=== PATIENT | male | born 1960 | race Caucasian/White ===

== ENCOUNTER 2017-12-21 00:23 | Inpatient (IN) | payer OTHER ==
[~2017-12-21] VITALS: Ht 175.3 cm; Wt 73.6 kg
[2017-12-21 03:04] VITALS: BP 154/96
[2017-12-21 05:47] VITALS: BP 160/75
[2017-12-21 06:30] LABS: BASOPHILS 0.2 % (0-2); EOSINOPHILS 0 % (0-7); HEMATOCRIT 42.9 % (42.0-54.0); HEMOGLOBIN 15.2 g/dL (13.5-17.5); IMMATURE GRANULOCYTES 0.2 % (0-5); MCH 37.4 pg (26.0-34.0); MCHC 35.4 g/dL (31.0-37.0); MCV 105.7 fL (80.0-100.0); MEAN PLATELET VOLUME 11.2 fL (7.4-10.4); MONOCYTES 5.7 % (2-11); NEUTROPHILS 77.9 % (40-80); PLATELET COUNT 134 10x3/uL (130-400); RBC 4.06 10x6/uL (4.20-6.10); WBC 11.9 10x3/uL (4.8-10.8)
[2017-12-21 07:00] LABS: CALC OSMOLALITY 285 mosm/kg (275-300); CALCIUM 8.9 mg/dL (8.5-10.1); CARBON DIOXIDE 25.2 mmol/L (21.0-32.0); CHLORIDE - SERUM 103 mmol/L (98-107); CREATININE - SERUM 0.9 mg/dL (0.6-1.3); GLUCOSE 112 mg/dL (74-106); POTASSIUM - SERUM 3.8 mmol/L (3.5-5.1); SODIUM 143 mmol/L (136-145); UREA NITROGEN 13 mg/dL (7-18); eGFR NON AFRICAN AMERICAN > 90 mL/min (90-120)
[2017-12-21 07:04] LABS: AMYLASE - SERUM 748 U/L (25-115); LIPASE 4468 U/L (73-393)
[2017-12-21 09:33] LABS: BILIRUBIN - DIRECT 0.65 mg/dL (0.00-0.30); BILIRUBIN - INDIRECT 0.83 mg/dL (0.00-1.00); BILIRUBIN - TOTAL 1.48 mg/dL (0.2-1.3); PROTEIN - SERUM 8.5 g/dL (6.4-8.2)
[2017-12-21 10:06] LABS: INR 1.19 (0.85-1.17); PROTIME 14.6 SECONDS (11.6-15.0)
[2017-12-21 16:20] VITALS: BP 168/97; Ht 175.3 cm; Wt 73.6 kg
[2017-12-21 16:32] VITALS: BP 168/97
[2017-12-21 20:51] VITALS: BP 140/82
[2017-12-22 04:26] VITALS: BP 154/84
[2017-12-22 06:30] LABS: BASOPHILS 0.2 % (0-2); EOSINOPHILS 0.1 % (0-7); HEMATOCRIT 36.4 % (42.0-54.0); HEMOGLOBIN 12.7 g/dL (13.5-17.5); IMMATURE GRANULOCYTES 0.2 % (0-5); MCH 36.6 pg (26.0-34.0); MCHC 34.9 g/dL (31.0-37.0); MCV 104.9 fL (80.0-100.0); MEAN PLATELET VOLUME 11.6 fL (7.4-10.4); MONOCYTES 6.3 % (2-11); NEUTROPHILS 74.2 % (40-80); RBC 3.47 10x6/uL (4.20-6.10); RDW 14.7 % (11.5-14.5); WBC 11.2 10x3/uL (4.8-10.8)
[2017-12-22 06:38] LABS: PLATELET COUNT 101 10x3/uL (130-400)
[2017-12-22 06:40] LABS: ALBUMIN 3.1 g/dL (3.4-5.0); ALKALINE PHOSPHATASE 157 U/L (46-116); ALT (SGPT) 36 U/L (10-68); AMYLASE - SERUM 298 U/L (25-115); BILIRUBIN - TOTAL 1.57 mg/dL (0.2-1.3); CALC OSMOLALITY 269 mosm/kg (275-300); CHLORIDE - SERUM 100 mmol/L (98-107); CREATININE - SERUM 0.6 mg/dL (0.6-1.3); GLUCOSE 79 mg/dL (74-106); LIPASE 1015 U/L (73-393); POTASSIUM - SERUM 3.2 mmol/L (3.5-5.1); PROTEIN - SERUM 6.9 g/dL (6.4-8.2); SODIUM 136 mmol/L (136-145); UREA NITROGEN 10 mg/dL (7-18); eGFR NON AFRICAN AMERICAN > 90 mL/min (90-120)
[2017-12-22 08:39] VITALS: BP 151/86
[2017-12-22 11:21] LABS: APPEARANCE HAZY (CLEAR); BILIRUBIN NEGATIVE (NEGATIVE); COLOR DK YELLOW (YELLOW); GLUCOSE NEGATIVE (NEGATIVE); KETONE SMALL mg/dL (NEGATIVE); NITRITE NEGATIVE (NEGATIVE); PROTEIN NEGATIVE (NEGATIVE)
[2017-12-22 11:23] LABS: BACTERIA FEW /hpf (NONE SEEN); EPITHELIAL CELLS RARE /hpf (0-5); MUCUS <1+ /lpf (NONE SEEN); RED CELLS - URINE RARE /hpf (0-5); WHITE CELLS - URINE RARE /hpf (0-5)
[2017-12-22 12:24] VITALS: BP 132/87
[2017-12-22 15:42] VITALS: BP 158/95
[2017-12-22 20:26] VITALS: BP 160/107
[2017-12-23] VITALS (7 sets, daily range): BP systolic 145–156; BP diastolic 81–101
[2017-12-23 05:32] LABS: BASOPHILS 0.1 % (0-2); EOSINOPHILS 0.3 % (0-7); HEMATOCRIT 36.6 % (42.0-54.0); IMMATURE GRANULOCYTES 0.5 % (0-5); LYMPHOCYTES 18.4 % (15-50); MCH 37.1 pg (26.0-34.0); MCHC 35.5 g/dL (31.0-37.0); MCV 104.6 fL (80.0-100.0); MEAN PLATELET VOLUME 10.9 fL (7.4-10.4); MONOCYTES 7.8 % (2-11); NEUTROPHILS 72.9 % (40-80); PLATELET COUNT 110 10x3/uL (130-400); RDW 14.5 % (11.5-14.5); WBC 11.5 10x3/uL (4.8-10.8)
[2017-12-23 06:13] LABS: ALBUMIN 3.2 g/dL (3.4-5.0); ALKALINE PHOSPHATASE 223 U/L (46-116); BILIRUBIN - TOTAL 1.81 mg/dL (0.2-1.3); CALC OSMOLALITY 261 mosm/kg (275-300); CALCIUM 8.3 mg/dL (8.5-10.1); CARBON DIOXIDE 24.3 mmol/L (21.0-32.0); CHLORIDE - SERUM 96 mmol/L (98-107); CREATININE - SERUM 0.7 mg/dL (0.6-1.3); GLUCOSE 73 mg/dL (74-106); LIPASE 290 U/L (73-393); POTASSIUM - SERUM 3.3 mmol/L (3.5-5.1); PROTEIN - SERUM 7.2 g/dL (6.4-8.2); SODIUM 132 mmol/L (136-145); UREA NITROGEN 8 mg/dL (7-18); eGFR NON AFRICAN AMERICAN > 90 mL/min (90-120)
[2017-12-23 06:14] LABS: ALT (SGPT) 51 U/L (10-68); AMYLASE - SERUM 90 U/L (25-115)
[2017-12-24] MEDS ORDERED: ULTRAM50 MG PO (02:46)
[2017-12-24] MEDS ORDERED: LOPRESSOR25 MG PO (02:47)
[2017-12-24] MEDS ORDERED: PRINIVIL20 MG PO (02:48)
[2017-12-24] MEDS ORDERED: MOBIC7.5 MG PO (02:49)
[2017-12-24] MEDS ORDERED: OMEPRAZOLE20 M1 PO (02:50)
[2017-12-24] MEDS ORDERED: LEXAPRO10 MG PO (02:51)
[2017-12-24 03:43] VITALS: BP 148/90
[2017-12-24 05:19] LABS: BASOPHILS 0.2 % (0-2); EOSINOPHILS 1.3 % (0-7); HEMATOCRIT 36.2 % (42.0-54.0); HEMOGLOBIN 12.6 g/dL (13.5-17.5); IMMATURE GRANULOCYTES 0.5 % (0-5); LYMPHOCYTES 23.4 % (15-50); MCH 36.3 pg (26.0-34.0); MCHC 34.8 g/dL (31.0-37.0); MCV 104.3 fL (80.0-100.0); MEAN PLATELET VOLUME 10.9 fL (7.4-10.4); MONOCYTES 9.8 % (2-11); NEUTROPHILS 64.8 % (40-80); PLATELET COUNT 129 10x3/uL (130-400); RBC 3.47 10x6/uL (4.20-6.10); RDW 14.5 % (11.5-14.5); WBC 8.7 10x3/uL (4.8-10.8)
[2017-12-24 06:07] LABS: ALKALINE PHOSPHATASE 283 U/L (46-116); AMYLASE - SERUM 89 U/L (25-115); BILIRUBIN - TOTAL 1.35 mg/dL (0.2-1.3); CALC OSMOLALITY 265 mosm/kg (275-300); CALCIUM 8.7 mg/dL (8.5-10.1); CARBON DIOXIDE 26.2 mmol/L (21.0-32.0); CHLORIDE - SERUM 100 mmol/L (98-107); CREATININE - SERUM 0.8 mg/dL (0.6-1.3); GLUCOSE 106 mg/dL (74-106); LIPASE 514 U/L (73-393); POTASSIUM - SERUM 3.4 mmol/L (3.5-5.1); PROTEIN - SERUM 6.9 g/dL (6.4-8.2); SODIUM 134 mmol/L (136-145); UREA NITROGEN 6 mg/dL (7-18); eGFR NON AFRICAN AMERICAN > 90 mL/min (90-120)
[2017-12-24 06:09] LABS: ALT (SGPT) 97 U/L (10-68)
[2017-12-24 08:13] VITALS: BP 136/88
[2017-12-24 12:33] VITALS: BP 152/95
[2017-12-24 14:12] LABS: HEPATITIS C ANTIBODY 6.2 (0.0-0.9)
[2017-12-24 16:10] VITALS: BP 152/99
[2017-12-24 19:36] VITALS: BP 158/98
[2017-12-24 23:26] VITALS: BP 178/110
[2017-12-25 04:00] VITALS: BP 149/70
[2017-12-25 05:52] LABS: BASOPHILS 0.2 % (0-2); EOSINOPHILS 1.4 % (0-7); HEMATOCRIT 36.5 % (42.0-54.0); HEMOGLOBIN 12.8 g/dL (13.5-17.5); IMMATURE GRANULOCYTES 0.7 % (0-5); LYMPHOCYTES 23.2 % (15-50); MCH 36.7 pg (26.0-34.0); MCHC 35.1 g/dL (31.0-37.0); MCV 104.6 fL (80.0-100.0); MEAN PLATELET VOLUME 10.8 fL (7.4-10.4); MONOCYTES 12.7 % (2-11); NEUTROPHILS 61.8 % (40-80); RBC 3.49 10x6/uL (4.20-6.10); RDW 14.5 % (11.5-14.5); WBC 8.1 10x3/uL (4.8-10.8)
[2017-12-25 05:54] LABS: PLATELET COUNT 168 10x3/uL (130-400)
[2017-12-25 06:10] LABS: ALKALINE PHOSPHATASE 368 U/L (46-116); BILIRUBIN - TOTAL 0.96 mg/dL (0.2-1.3); CALC OSMOLALITY 274 mosm/kg (275-300); CALCIUM 8.8 mg/dL (8.5-10.1); CARBON DIOXIDE 27.2 mmol/L (21.0-32.0); CHLORIDE - SERUM 101 mmol/L (98-107); CREATININE - SERUM 0.7 mg/dL (0.6-1.3); GLUCOSE 126 mg/dL (74-106); LIPASE 716 U/L (73-393); POTASSIUM - SERUM 3.3 mmol/L (3.5-5.1); PROTEIN - SERUM 7.2 g/dL (6.4-8.2); SODIUM 138 mmol/L (136-145); UREA NITROGEN 5 mg/dL (7-18); eGFR NON AFRICAN AMERICAN > 90 mL/min (90-120)
[2017-12-25 06:11] LABS: ALT (SGPT) 202 U/L (10-68); AMYLASE - SERUM 121 U/L (25-115)
[2017-12-25 06:12] LABS: INR 1.06 (0.85-1.17); PROTIME 13.4 SECONDS (11.6-15.0)
[2017-12-25 08:05] VITALS: BP 143/95
[2017-12-25 12:09] VITALS: BP 141/90
[2017-12-25 16:02] VITALS: BP 141/91
[2017-12-25 19:47] VITALS: BP 158/100
[2017-12-25 23:37] VITALS: BP 152/93
[2017-12-26 03:39] VITALS: BP 147/93
[2017-12-26 05:09] LABS: BASOPHILS 0.2 % (0-2); HEMATOCRIT 35.6 % (42.0-54.0); HEMOGLOBIN 12.3 g/dL (13.5-17.5); LYMPHOCYTES 26.5 % (15-50); MCH 36.4 pg (26.0-34.0); MCHC 34.6 g/dL (31.0-37.0); MCV 105.3 fL (80.0-100.0); MEAN PLATELET VOLUME 10.6 fL (7.4-10.4); MONOCYTES 14.3 % (2-11); RBC 3.38 10x6/uL (4.20-6.10); RDW 14.7 % (11.5-14.5)
[2017-12-26 05:19] LABS: PLATELET COUNT 203 10x3/uL (130-400); WBC 10.6 10x3/uL (4.8-10.8)
[2017-12-26 05:43] LABS: ALKALINE PHOSPHATASE 316 U/L (46-116); ALT (SGPT) 179 U/L (10-68); AMYLASE - SERUM 135 U/L (25-115); BILIRUBIN - TOTAL 0.95 mg/dL (0.2-1.3); CALCIUM 8.4 mg/dL (8.5-10.1); CARBON DIOXIDE 26.3 mmol/L (21.0-32.0); CHLORIDE - SERUM 103 mmol/L (98-107); CREATININE - SERUM 0.7 mg/dL (0.6-1.3); GLUCOSE 99 mg/dL (74-106); LIPASE 673 U/L (73-393); POTASSIUM - SERUM 3.2 mmol/L (3.5-5.1); PROTEIN - SERUM 7.1 g/dL (6.4-8.2); SODIUM 139 mmol/L (136-145); eGFR NON AFRICAN AMERICAN > 90 mL/min (90-120)
[2017-12-26 05:44] LABS: CALC OSMOLALITY 274 mosm/kg (275-300); UREA NITROGEN 3 mg/dL (7-18)
[2017-12-26 08:20] VITALS: BP 137/79
[2017-12-26 12:06] VITALS: BP 137/79
[2017-12-26 16:41] VITALS: BP 150/85
[2017-12-26 21:09] VITALS: BP 159/86
[2017-12-27 00:21] VITALS: BP 130/77
[2017-12-27 10:14] LABS: ANA REFLEX - ANTICHROMATIN ABS <0.2 AI (0.0-0.9); ANA REFLEX - CENTROMERE B ABS <0.2 AI (0.0-0.9); ANA REFLEX - DBL STRANDED DNA 12 IU/mL (0-9); ANA REFLEX - DIRECT Positive (Negative); ANA REFLEX - JO-1 AB <0.2 AI (0.0-0.9); ANA REFLEX - RNP ANTIBODIES 0.2 AI (0.0-0.9); ANA REFLEX - SCL-70 <0.2 AI (0.0-0.9); ANA REFLEX - SJOGRENS AB SSA <0.2 AI (0.0-0.9); ANA REFLEX - SJOGRENS AB SSB <0.2 AI (0.0-0.9); ANA REFLEX - SMITH AB <0.2 AI (0.0-0.9)
[2017-12-29 11:18] LABS: SMOOTH MUSCLE ABS (ACTIN) 13 Units (0-19)
[2017-12-30 14:16] LABS: MITOCHONDRIAL ANTIBODY 18.2 Units (0.0-20.0)
== END 2017-12-27 10:46 | disposition left against medical advice (07) | DRG 438 ==
LOC: D.ER 00:23 → D.MS 01:08 → D.EDHOLD 01:08 → D.MS 15:37 → D.SDCHOLD 12-22 13:36 → D.MS 12-22 13:45
PROVIDERS: Emergency Medicine; Family Medicine; Internal Medicine Gastroenterology
PROC: 0F798ZZ Dilation of Common Bile Duct, Via Natural or Artificial Opening Endoscopic (ICD-10-PCS; principal; 2017-12-21 11:30)
DX: K85.10 Biliary acute pancreatitis without necrosis or infection (principal); G92 Toxic encephalopathy; F17.203 Nicotine dependence unspecified, with withdrawal; F10.239 Alcohol dependence with withdrawal, unspecified; I10 Essential (primary) hypertension; E86.0 Dehydration; F32.9 Major depressive disorder, single episode, unspecified; K85.20 Alcohol induced acute pancreatitis without necrosis or infection